=== PATIENT | female | born 1955 | race Caucasian/White ===

== ENCOUNTER → 2017-04-29 | Outpatient (CLI) | payer OTHER ==
--- NOTE | 2017-04-29 22:30 | EST ---
EXERCISE STRESS AGE: 62 SEX: FEMALE HT: 64 inches WT: 144 pounds PROTOCOL: Sam STAGE: 3 DURATION OF EXERCISE: 7 minutes HEART RATE REST: 82 BLOOD PRESSURE REST: 102/66 MAXIMUM HEART RATE ACHIEVED: 147 MAXIMUM BLOOD PRESSURE: 181/77 85% MPHR: 135 100% MPHR: 159 METS: 8.5 INDICATIONS: Chest pain. CLINICAL INFORMATION: Baseline EKG revealed normal sinus rhythm with poor R-wave progression over precordial leads. Patient walked for 7 minutes on a standard Sam protocol. Achieved a maximum heart rate of 147 beats per minute which is well above 85% of predicted maximum. She developed some fatigue and shortness of breath, but did not have any anginal symptoms. Resting heart rate was 82 beats per minute. Resting blood pressure was 102/66, and peak blood pressure was 181/77. EKG did not reveal any ST-segment changes to indicate ischemia. There was no arrhythmia. There was no angina. By EKG criteria, this is a negative stress test with fair exercise capacity. MMODL / IJN: [id number] /
== END | disposition home or self-care (01) ==
LOC: RADNMMAIN 10:36
PROVIDERS: ATTEND Nurse Practitioner
DX: R07.89 Other chest pain (principal)
CPT/HCPCS: 93017

== ENCOUNTER → 2019-10-25 | Outpatient (CLI) | payer BC ==
--- NOTE | 2019-10-27 10:41 | MM ---
Reason for exam: screening (asymptomatic). Last mammogram was performed 2 years and 6 months ago. History: Patient is postmenopausal. Family history of breast cancer in maternal aunt and breast cancer in maternal grandmother. 2 cyst aspirations of the left breast. Cyst aspiration of the right breast. Physical Findings: A clinical breast exam by your physician is recommended on an annual basis and results should be correlated with mammographic findings. MG 3D Screening Mammo W/Cad Bilateral CC and MLO view(s) were taken. Prior study comparison: April 29, 2017, left breast MG 3d work up w/cad LT. April 15, 2017, bilateral MG 3d screening mammo w/cad. The breast tissue is heterogeneously dense. This may lower the sensitivity of mammography. No significant changes when compared with prior studies. ASSESSMENT: Negative, BI-RAD 1 RECOMMENDATION: Routine screening mammogram of both breasts in 1 year.
== END | disposition home or self-care (01) ==
LOC: RADMAMWWP 14:37
PROVIDERS: ATTEND Obstetrics & Gynecology
DX: Z12.31 Encounter for screening mammogram for malignant neoplasm of breast (principal); Z80.3 Family history of malignant neoplasm of breast
CPT/HCPCS: 77063; 77067

== ENCOUNTER → 2021-08-20 | Outpatient (CLI) | payer MEDICARE ==
--- NOTE | 2021-08-20 16:50 | BD ---
EXAMINATION TYPE: Axial Bone Density DATE OF EXAM: 08/20/2021 COMPARISON: NONE CLINICAL HISTORY: 66 years year old Female. ICD-10 CODE: Z780 Height: 5'5 Weight: 147 FRAX RISK QUESTIONS: Family History (Parent hip fracture): Y Secondary Osteoporosis: RISK FACTORS HISTORY OF: Family History of Osteoporosis: Y Postmenopausal woman: y MEDICATIONS: Additional Medications: 0 Additional History: EXAM MEASUREMENTS: Bone mineral densitometry was performed using the [employer] System. Bone mineral density as measured about the Lumbar spine is: ----- L1-L4(G/cm2): 1.041 T Score Values are as follows: ----- L1: -1.2 ----- L2: -1.3 ----- L3: -1.1 ----- L4: -1.2 ----- L1-L-4: -1.2 Bone mineral density about the R hip (g/cm2): 0.824 Bone mineral density about the L hip (g/cm2): 0.833 T Score values are as follows: -----R Neck: -1.5 -----L Neck: -1.5 -----R Total: -1.0 -----L Total: -1.2 FRAX%s: The graph provided illustrates a 17.2 chance for a major osteoporotic fx and a 1.2 chance for the hips probability for fx in 10 years time. IMPRESSION: Osteopenia (T Score between -2.5 and -1). There is slightly increased risk of fracture and the patient may be considered for treatment. Re-Screen 2-5 years. NOTE: T-SCORE=SD OF THE YOUNG ADULT MEAN.
--- NOTE | 2021-08-21 15:04 | MM ---
Reason for exam: screening (asymptomatic). Last mammogram was performed 1 year and 10 months ago. History: Patient is postmenopausal. Family history of breast cancer in maternal aunt and breast cancer in maternal grandmother. 2 cyst aspirations of the left breast. Cyst aspiration of the right breast. Physical Findings: A clinical breast exam by your physician is recommended on an annual basis and results should be correlated with mammographic findings. MG 3D Screening Mammo W/Cad Bilateral CC and MLO view(s) were taken. Technologist: RT Elli (R)(M) Prior study comparison: October 25, 2019, bilateral MG 3d screening mammo w/cad. April 29, 2017, left breast MG 3d work up w/cad LT. The breast tissue is extremely dense which could obscure a lesion on mammography. There is no discrete abnormality. No significant changes when compared with prior studies. ASSESSMENT: Negative, BI-RAD 1 RECOMMENDATION: Routine screening mammogram of both breasts in 1 year.
== END | disposition home or self-care (01) ==
LOC: RADBDWWP 09:05
PROVIDERS: ATTEND Obstetrics & Gynecology
DX: Z12.31 Encounter for screening mammogram for malignant neoplasm of breast (principal); M85.89 Other specified disorders of bone density and structure, multiple sites; Z78.0 Asymptomatic menopausal state; Z80.3 Family history of malignant neoplasm of breast
CPT/HCPCS: 77063; 77067; 77080

== ENCOUNTER → 2022-11-20 | Outpatient (CLI) | payer MEDICARE ==
--- NOTE | 2022-11-21 21:49 | MM ---
Reason for Exam: Screening (asymptomatic). Last mammogram was performed 1 year(s) and 3 month(s) ago. Patient History: Menarche at age 13. First Full-Term at age 26. Postmenopausal. Cyst Aspiration on the Right side. Cyst Aspiration on the Left side. Cyst Aspiration on the Left side. Maternal grandmother had breast cancer. Maternal aunt had breast cancer. Risk Values: Carine 5 year model risk: 1.9%. NCI Lifetime model risk: 6.7%. Prior Study Comparison: 04/29/2017 Left Diagnostic Mammogram, [facility]. 10/25/2019 Bilateral Screening Mammogram, [facility]. 08/20/2021 Bilateral Screening Mammogram, [facility]. Tissue Density: The breast tissue is heterogeneously dense. This may lower the sensitivity of mammography. Findings: Analyzed By CAD. Bilateral benign vascular calcifications. Areas of asymmetric density remain unchanged. There is no suspicious group of microcalcifications or new suspicious mass in either breast. Overall Assessment: Benign, BI-RAD 2 Management: Screening Mammogram of both breasts in 1 year. . Patient should continue monthly self-breast exams. A clinical breast exam by your physician is recommended on an annual basis. This exam should not preclude additional follow-up of suspicious palpable abnormalities. Note on Craine scores and lifetime risk: 1. A Carine score greater than 3% is considered moderate risk. If this is the case, consider specialist referral to assess eligibility for a risk reducing agent. 2. If overall lifetime risk for the development of breast cancer is 20% or higher, the patient may qualify for future screening with alternating mammogram and breast MRI. Electronically signed and approved by: Marisol Rodriguez M.D. Radiologist
== END | disposition home or self-care (01) ==
LOC: RADMAMWWP 16:52
PROVIDERS: ATTEND Family Medicine
DX: Z12.31 Encounter for screening mammogram for malignant neoplasm of breast (principal); Z78.0 Asymptomatic menopausal state; Z80.3 Family history of malignant neoplasm of breast
CPT/HCPCS: 77063; 77067

== ENCOUNTER → 2024-01-20 | Outpatient (CLI) | payer MEDICARE ==
--- NOTE | 2024-01-20 14:43 | BD ---
EXAMINATION TYPE: Axial Bone Density DATE OF EXAM: 01/20/2024 CLINICAL HISTORY: 68 years old Female. ICD-10 CODE: Z78.0 Post menopausal Height: 5 ft 3 1/2 in Weight: 146 FRAX RISK QUESTIONS: Alcohol (3 or more units per day): no Family History (Parent hip fracture): yes Glucocorticoids (More than 3mos): no` (Ex: prednisone, prednisolone, methylprednisolone, dexamethasone, and hydrocortisone). History of Fracture in Adulthood: no Secondary Osteoporosis: 1. Type 1 Diabetes: no 2. Hyperthyroidism: no 3. Menopause before 45: no 4. Malnutrition: no 5. Chronic liver disease: no Rheumatoid Arthritis: no Current Tobacco Use: no RISK FACTORS HISTORY OF: Surgery to Spine/Hip(right/left)/Wrist (right/left): no MEDICATIONS: Thyroid Medications: none Osteoporosis Medications: none EXAM MEASUREMENTS: Bone mineral densitometry was performed using the [employer] System. Bone mineral density as measured about the Lumbar spine is: ----- L1-L4(G/cm2): 0.996 T Score Values are as follows: ----- L1: -1.3 ----- L2: -1.7 ----- L3: -1.3 ----- L4: -1.9 ----- L1-L4: -1.5 Z Score Values are as follows: ----- L1: 0.3 ----- L2: -0.2 ----- L3: 0.3 ----- L4: -0.3 ----- L1-L4: 0.1 Bone mineral density has: decreased -4.3 % since study of: 2021 Bone mineral density about the R hip (g/cm2): 0.834 Bone mineral density about the L hip (g/cm2): 0.831 T Score values are as follows: -----R Neck: -1.5 -----L Neck: -1.5 -----R Total: -1.0 -----L Total: -1.1 Z Score values are as follows: -----R Neck: 0.1 -----L Neck: 0.1 -----R Total: 0.3 -----L Total: 0.3 Bone mineral density has: increased 0.8 % since study of: 2021 FRAX%s: The graph provided illustrates a 16.4% chance for a major osteoporotic fx and a 1.9 % chance for the hips probability for fx in 10 years time. IMPRESSION: Osteopenia (T Score between -2.5 and -1). There is slightly increased risk of fracture and the patient may be considered for treatment. Re-Screen 2-5 years. NOTE: T-SCORE=SD OF THE YOUNG ADULT MEAN.
--- NOTE | 2024-01-21 14:27 | MM ---
Reason for Exam: Screening (asymptomatic). Last mammogram was performed 1 year(s) and 2 month(s) ago. Patient History: Menarche at age 13. First Full-Term at age 26. Postmenopausal. Patient has history of breast feeding. Cyst Aspiration on the Right side. Cyst Aspiration on the Left side. Cyst Aspiration on the Left side. Maternal grandmother had breast cancer. Maternal aunt had breast cancer. Risk Values: Carine 5 year model risk: 1.9%. NCI Lifetime model risk: 6.4%. Prior Study Comparison: 05/15/2014 Bilateral Screening Mammogram, [facility]. 04/15/2017 Bilateral Screening Mammogram, [facility]. 04/29/2017 Left Diagnostic Mammogram, [facility]. 10/25/2019 Bilateral Screening Mammogram, [facility]. 08/20/2021 Bilateral Screening Mammogram, [facility]. 11/20/2022 Bilateral MG 3D screening mammo w/cad, [facility]. Tissue Density: The breasts are heterogeneously dense, which may obscure small masses. Findings: Analyzed By CAD. There is no suspicious group of microcalcifications or new suspicious mass in either breast. Overall Assessment: Benign, BI-RAD 2 Management: Screening Mammogram of both breasts in 1 year. . Patient should continue monthly self-breast exams. A clinical breast exam by your physician is recommended on an annual basis. This exam should not preclude additional follow-up of suspicious palpable abnormalities. Note on Carine scores and lifetime risk: 1. A Carine score greater than 3% is considered moderate risk. If this is the case, consider specialist referral to assess eligibility for a risk reducing agent. 2. If overall lifetime risk for the development of breast cancer is 20% or higher, the patient may qualify for future screening with alternating mammogram and breast MRI. Electronically signed and approved by: Ernesto Cabrera M.D. Radiologis
== END | disposition home or self-care (01) ==
LOC: RADMAMWWP 13:23
PROVIDERS: ATTEND Family Medicine
DX: Z78.0 Asymptomatic menopausal state
CPT/HCPCS: 77063; 77067; 77080